=== PATIENT | male | born 1945 | race Caucasian/White ===

== ENCOUNTER 2018-01-07 07:53 | Emergency (ER) | payer MEDICARE, OTHER ==
[~2018-01-07] VITALS: Ht 182.9 cm; Wt 88.5 kg
[2018-01-07] MEDS ORDERED: METO25TA35 PO (08:14)
[2018-01-07] MEDS ORDERED: APIX5TAB PO (08:14)
[2018-01-07] MEDS ORDERED: DILT240C77 PO (08:14)
[2018-01-07] MEDS ORDERED: SIMV20TA3 PO (08:14)
[2018-01-07] MEDS ORDERED: DILTIAZEM 5 MG/ML, 5ML ONE (08:24)
[2018-01-07] MEDS ORDERED: SODIUM CHLORIDE FLUSH 10ML SYR IVF ONE (08:30)
[2018-01-07] MEDS ORDERED: DILTIAZEM 5 MG/ML, 5ML IV ONE (08:30)
[2018-01-07 08:46] LABS: ALBUMIN 4.4 g/dL (3.4-5.0); ANION GAP 11 mmol/L (5-15); CALCIUM 9.2 mg/dL (8.5-10.1); CHLORIDE 104 mmol/L (98-107)
[2018-01-07 08:51] LABS: BASOPHILS # (AUTO) 0.06 x10^3/uL (0-0.1); BASOPHILS % (AUTO) 1 % (0-1); EOSINOPHILS # (AUTO) 0.21 x10^3/uL (0-0.4); EOSINOPHILS % (AUTO) 4 % (1-7); LYMPHOCYTES # (AUTO) 1.59 x10^3/uL (1-3.4); LYMPHOCYTES % (AUTO) 29 % (22-44); MD NO; MEAN CORPUSCULAR HEMOGLOBIN 32.6 pg (27.5-34.5); MEAN CORPUSCULAR HGB CONC 34.5 g/dL (33.2-36.2); MEAN CORPUSCULAR VOLUME 94.5 fL (81-97); MEAN PLATELET VOLUME 9.4 fL (7.4-10.4); MONOCYTES # (AUTO) 0.55 x10^3/uL (0.2-0.8); MONOCYTES % (AUTO) 10 % (2-9); NEUTROPHILS # (AUTO) 2.99 x10^3/uL (1.8-6.8); NEUTROPHILS % (AUTO) 55 % (42-75); PLATELET COUNT 184 x10^3/uL (130-400); RED BLOOD COUNT 5.08 x10^6/uL (4.38-5.82); RED CELL DISTRIBUTION WIDTH 12.4 % (9.4-14.8)
[2018-01-07 08:52] LABS: ALANINE AMINOTRANSFERASE 62 U/L (12-78); ALKALINE PHOSPHATASE 88 U/L (45-117); TROPONIN I < 0.015 ng/mL (0.000-0.045)
[2018-01-07 08:57] VITALS: BP 135/84
== END 2018-01-07 09:58 | disposition home or self-care (01) ==
LOC: ED 09:30
DX: I48.2 Chronic atrial fibrillation (principal); Z79.01 Long term (current) use of anticoagulants; I10 Essential (primary) hypertension
CPT/HCPCS: 36415; 71045; 80053; 83880; 84484; 85025; 93005; 96374

== ENCOUNTER 2021-05-11 13:12 | Emergency (ER) | payer MEDICARE, OTHER ==
[~2021-05-11] VITALS: Ht 180.3 cm; Wt 94.0 kg
[~2021-05-11 13:12] MED LIST: APIX5TAB PO; DILT240C77 PO; METO25TA35 PO; SIMV20TA19 PO
--- NOTE | 2021-05-11 13:40 | NUR ---
PT AMBULATORY TO ROOM FROM TRIAGE. PT C/O HIGH BP. PER PT HE TOOK HIS BP AT HOME AND WAS IN THE 140'S WHICH IS HIGH FOR HIM. PT TOOK IT AT HOME AND HIGHEST WAS 150 SYSTOLIC PT CHANGED INTO GOWN, MONITORS IN PLACE. CALL LIGHT WITHIN REACH
--- NOTE | 2021-05-11 13:45 | NUR ---
PA AT BS
--- NOTE | 2021-05-11 14:08 | NUR ---
PA AT BS FOR UPDATE ON POC
[2021-05-11 14:11] VITALS: BP 119/71
--- NOTE | 2021-05-11 14:13 | NUR ---
PT RSETING ON PAL KELLER/DWAYNE. CALL LIGHT WITHIN REACH. NO NEEDS AT THIS TIME
--- NOTE | 2021-05-11 14:26 | NUR ---
Patient given discharge instructions and they have confirmed that they understand the instructions. Patient ambulatory with steady gait.
== END 2021-05-11 14:28 | disposition home or self-care (01) ==
LOC: ED 14:20
DX: I10 Essential (primary) hypertension (principal); R00.0 Tachycardia, unspecified; I48.91 Unspecified atrial fibrillation; I11.9 Hypertensive heart disease without heart failure; Z87.891 Personal history of nicotine dependence
CPT/HCPCS: 93005; 99283